=== PATIENT | male | born 1960 | race Caucasian/White ===

== ENCOUNTER → 2016-12-05 | Outpatient (CLI) | payer MEDICAID | END | disposition home or self-care (01) | LOC: LABWHC1 08:50 | PROVIDERS: ATTEND Family Medicine | DX: E29.1 Testicular hypofunction (principal); N40.0 Benign prostatic hyperplasia without lower urinary tract symptoms; E03.9 Hypothyroidism, unspecified; E55.9 Vitamin D deficiency, unspecified | CPT/HCPCS: 36415; 82040; 84270; 84403 ==

== ENCOUNTER → 2017-04-01 | Outpatient (CLI) | payer MEDICAID ==
--- NOTE | 2017-04-01 10:44 | US ---
EXAMINATION TYPE: US thyroid st tissue head/neck DATE OF EXAM: 04/01/2017 9:33 AM COMPARISON: US CLINICAL HISTORY: E04.1 thyroid nodule. Follow up thyroid nodule, history of thyroid biopsy GLAND SIZE: Right Lobe: 5.0 x 1.5 x 2.0 cm Overall Parenchyma: heterogenous Left Lobe: 3.8 x 1.2 x 1.3 cm Overall Parenchyma: heterogeneous Isthmus Thickness: 0.3 cm NODULES RIGHT: # of nodules measured on right: 1 1. 1.2 X 0.9 x 1.1 cm isoechoic solid nodule at the mid pole with well-defined margins. This nodule is wider than tall and shows intranodular vascularity. Prior size: 1.1 x 0.9 x 1.1 cm LEFT: # of nodules measured on left: 0 ISTHMUS: # of nodules measured in the isthmus: 0 Heterogeneous thyroid with reevaluation of right lobe nodule described above, bilateral neck scanned, no evidence of lymphadenopathy. IMPRESSION: 1. Essentially stable right-sided thyroid nodule unchanged from the previous exam given differences i n technique. Thyromegaly persists.
== END | disposition home or self-care (01) ==
LOC: RADUSWWP 09:09
PROVIDERS: ATTEND Family Medicine
DX: E04.1 Nontoxic single thyroid nodule (principal)
CPT/HCPCS: 76536

== ENCOUNTER → 2017-05-02 | Outpatient (CLI) | payer MEDICAID ==
[2017-05-02 11:59] LABS: Basophils # (A) 0.1 k/uL (0-0.2); Basophils % (A) 1 %; CH 30.1; Eosinophils # (A) 0.2 k/uL (0-0.7); Eosinophils % (A) 3 %; HCT 52.6 % (39.0-53.0); HDW 2.32; HGB 16.8 gm/dL (13.0-17.5); Luc # (Auto) 0.16; Luc % (Auto) 2; Lymphocytes # (A) 1.5 k/uL (1.0-4.8); Lymphocytes % (A) 20 %; MCH 30.2 pg (25.0-35.0); MCHC 31.9 g/dL (31.0-37.0); MCV 94.6 fL (80.0-100.0); Mean Platelet Volume 7.4; Monocytes # (A) 0.5 k/uL (0-1.0); Monocytes % (A) 6 %; Neutrophils # (A) 5.2 k/uL (1.3-7.7); Neutrophils % (A) 69 %; RBC 5.57 m/uL (4.30-5.90); RDW 13.6 % (11.5-15.5); WBC 7.5 k/uL (3.8-10.6); WBC (Perox) 7.16
[2017-05-02 12:11] LABS: ALT 49 U/L (21-72); AST 34 U/L (17-59); Anion Gap 11 mmol/L; Blood Urea Nitrogen 26 mg/dL (9-20); Calcium 9.7 mg/dL (8.4-10.2); Carbon Dioxide 26 mmol/L (22-30); Chloride 104 mmol/L (98-107); Glucose 91 mg/dL (74-99); Non-African American GFR(MDRD) >60 (>60 ml/min/1.73 sqM); Sodium 141 mmol/L (137-145)
== END | disposition home or self-care (01) ==
LOC: LABWHC1 10:40
PROVIDERS: ATTEND Family Medicine
DX: E03.9 Hypothyroidism, unspecified (principal); E29.1 Testicular hypofunction
CPT/HCPCS: 36415; 80048; 82040; 82626; 84153; 84270; 84403; 84439; 84443; 84450; 84460; 85025

== ENCOUNTER → 2017-07-30 | Outpatient (CLI) | payer MEDICAID ==
--- NOTE | 2017-07-30 15:29 | US ---
EXAMINATION TYPE: US thyroid st tissue head/neck DATE OF EXAM: 07/30/2017 COMPARISON: NONE CLINICAL HISTORY: E04.1 Nodule. Thyroid nodule GLAND SIZE: Right Lobe: 4.6 x 2.0 x 2.0 cm Overall Parenchyma: heterogenous Left Lobe: 4.3 x 1.5 x 1.6 cm Overall Parenchyma: heterogeneous Isthmus Thickness: 0.4 cm NODULES RIGHT: # of nodules measured on right: 1 1. 1.1 X 0.8 x 1.2 cm isoechoic solid nodule at the mid pole with well-defined margins; . This nod ule is wider than tall and shows intranodular vascularity. Prior size: 1.2 x 0.9 x 1.1 cm LEFT: # of nodules measured on left: 0 ISTHMUS: # of nodules measured in the isthmus: 0 Bilateral neck scanned, no evidence of lymphadenopathy. IMPRESSION: Stable appearing nodule noted right lobe
== END ==
LOC: RADUSWWP 14:58
PROVIDERS: ATTEND Family Medicine
DX: E04.1 Nontoxic single thyroid nodule (principal)
CPT/HCPCS: 76536

== ENCOUNTER → 2018-02-16 | Outpatient (CLI) | payer MEDICAID ==
[2018-02-16 17:31] LABS: Basophils # (A) 0.1 k/uL (0-0.2); Basophils % (A) 1 %; Eosinophils # (A) 0.4 k/uL (0-0.7); Eosinophils % (A) 5 %; Lymphocytes # (A) 1.5 k/uL (1.0-4.8); Lymphocytes % (A) 19 %; MCH 29.1 pg (25.0-35.0); MCHC 31.9 g/dL (31.0-37.0); MCV 91.2 fL (80.0-100.0); Mean Platelet Volume 7.5; Monocytes # (A) 0.6 k/uL (0-1.0); Monocytes % (A) 8 %; Neutrophils # (A) 5.2 k/uL (1.3-7.7); Neutrophils % (A) 65 %; Platelet Count 241 k/uL (150-450); RBC 5.48 m/uL (4.30-5.90); RDW 12.9 % (11.5-15.5)
[2018-02-16 18:15] LABS: Prostate Specific Antigen 2.35 ng/mL (0.00-4.00)
== END | disposition home or self-care (01) ==
LOC: LABWHC1 17:06
PROVIDERS: ATTEND Family Medicine
DX: E03.9 Hypothyroidism, unspecified (principal); E29.1 Testicular hypofunction; R94.6 Abnormal results of thyroid function studies; E34.9 Endocrine disorder, unspecified; Z79.890 Hormone replacement therapy
CPT/HCPCS: 36415; 82627; 84153; 84402; 84403; 84443; 84481; 85025

== ENCOUNTER → 2018-02-16 | Outpatient (CLI) | payer MEDICAID ==
--- NOTE | 2018-02-16 23:28 | US ---
EXAMINATION TYPE: US thyroid st tissue head/neck DATE OF EXAM: 02/16/2018 COMPARISON: 07/30/2017 CLINICAL HISTORY: 57-year-old male E04.1 Nontoxic Single Thyroid Nodule. Follow up thyroid nodule, hi story of biopsy Technique: Multiple sonographic images of the thyroid gland are obtained. FINDINGS: Right Lobe: 4.6 x 1.7 x 2.3 cm Overall Parenchyma: heterogenous Left Lobe: 4.2 x 1.3 x 1.3 cm Overall Parenchyma: heterogeneous Isthmus Thickness: 0.4 cm NODULES RIGHT: # of nodules measured on right: 1 1. 1.0 X 0.8 x 1.1 cm isoechoic solid nodule at the mid pole with well-defined margins. This nodule is wider than tall and shows intranodular vascularity. Prior size: 1.1 x 0.8 x 1.2 cm LEFT: # of nodules measured on left: 0 ISTHMUS: # of nodules measured in the isthmus: 0 Bilateral neck scanned, no evidence of lymphadenopathy. IMPRESSION: Stable solitary 1.1 cm solid nodule in the right midpole. No additional nodules seen.
== END | disposition home or self-care (01) ==
LOC: RADUSWWP 16:48
PROVIDERS: ATTEND Family Medicine
DX: E04.1 Nontoxic single thyroid nodule (principal)
CPT/HCPCS: 76536

== ENCOUNTER → 2018-03-06 | Outpatient (CLI) | payer MEDICAID ==
[2018-03-06 12:33] LABS: T4, Free (Free Thyroxine) 0.78 ng/dL (0.78-2.19)
[2018-03-06 12:47] LABS: Prostate Specific Antigen 1.94 ng/mL (0.00-4.00)
== END | disposition home or self-care (01) ==
LOC: LABWHC1 11:52
PROVIDERS: ATTEND Family Medicine
DX: E03.9 Hypothyroidism, unspecified (principal); N40.0 Benign prostatic hyperplasia without lower urinary tract symptoms
CPT/HCPCS: 36415; 84153; 84439; 84443; 84481

== ENCOUNTER → 2018-03-19 | Outpatient (CLI) | payer MEDICAID | END | disposition home or self-care (01) | LOC: LABWHC1 10:58 | PROVIDERS: ATTEND Family Medicine | DX: E03.9 Hypothyroidism, unspecified (principal) | CPT/HCPCS: 36415; 84481 ==

== ENCOUNTER → 2018-09-02 | Outpatient (CLI) | payer MEDICAID ==
[2018-09-02 11:04] LABS: Appearance,Urine Clear (Clear); Bilirubin,Urine Negative (Negative); Blood,Urine Negative (Negative); Color,Urine Yellow; Glucose,Urine (UA) Negative (Negative); Ketones,Urine Negative (Negative); Leukocyte Esterase,Urine Negative (Negative); Nitrite,Urine Negative (Negative); Protein,Urine Negative (Negative); Urobilinogen,Urine <2.0 mg/dL (<2.0)
[2018-09-02 11:12] LABS: Basophils % (A) 1 %; Eosinophils # (A) 0.2 k/uL (0-0.7); Eosinophils % (A) 2 %; HCT 52.7 % (39.0-53.0); HGB 17.5 gm/dL (13.0-17.5); Lymphocytes # (A) 1.2 k/uL (1.0-4.8); Lymphocytes % (A) 18 %; MCH 30.2 pg (25.0-35.0); MCHC 33.2 g/dL (31.0-37.0); MCV 90.9 fL (80.0-100.0); Mean Platelet Volume 7.1; Monocytes # (A) 0.5 k/uL (0-1.0); Monocytes % (A) 8 %; Neutrophils # (A) 4.7 k/uL (1.3-7.7); Neutrophils % (A) 70 %; Platelet Count 225 k/uL (150-450); RBC 5.79 m/uL (4.30-5.90); RDW 13.4 % (11.5-15.5); WBC 6.7 k/uL (3.8-10.6)
[2018-09-02 11:26] LABS: ALT 33 U/L (21-72); AST 24 U/L (17-59); Albumin 4.1 g/dL (3.5-5.0); Alkaline Phosphatase 46 U/L (38-126); Anion Gap 7 mmol/L; Blood Urea Nitrogen 23 mg/dL (9-20); Calcium 9.5 mg/dL (8.4-10.2); Carbon Dioxide 27 mmol/L (22-30); Chloride 105 mmol/L (98-107); Glucose 84 mg/dL (74-99); Potassium 4.6 mmol/L (3.5-5.1); Sodium 139 mmol/L (137-145); Total Bilirubin 0.9 mg/dL (0.2-1.3); Total Protein 7.2 g/dL (6.3-8.2)
[2018-09-02 11:43] LABS: T4, Free (Free Thyroxine) 0.76 ng/dL (0.78-2.19)
[2018-09-02 11:56] LABS: Prostate Specific Antigen 2.08 ng/mL (0.00-4.00)
[2018-09-02 16:21] LABS: DHEA Sulfate 422.3 ug/dL (34.5-568.9)
[2018-09-02 16:22] LABS: Vitamin D 25 Hydroxy 71.8 ng/mL (30.0-100.0)
[2018-09-02 19:04] LABS: Hemoglobin A1C 5.2 % (4.0-6.0)
== END | disposition home or self-care (01) ==
LOC: LABWHC1 09:44
PROVIDERS: ATTEND Family Medicine
DX: Z00.00 Encounter for general adult medical examination without abnormal findings (principal); E29.1 Testicular hypofunction; E03.9 Hypothyroidism, unspecified; E55.9 Vitamin D deficiency, unspecified; E61.1 Iron deficiency; E04.1 Nontoxic single thyroid nodule; E53.0 Riboflavin deficiency; Z85.46 Personal history of malignant neoplasm of prostate; E34.9 Endocrine disorder, unspecified; Z79.890 Hormone replacement therapy
CPT/HCPCS: 36415; 80053; 81003; 82040; 82306; 82607; 82626; 82627; 82728; 83036; 83090; 84153; 84270; 84403; 84439; 84443; 84481; 85025

== ENCOUNTER 2018-09-10 00:27 | Emergency (ER) | payer MEDICAID ==
[2018-09-10 00:31] VITALS: TEMP 98.3
[2018-09-10] MEDS ORDERED: ASPIRIN 81 MG PO STA (00:38)
[2018-09-10] MEDS ORDERED: SODIUM CHLORIDE 0.9% 1,000 ML IV STA (00:38)
[2018-09-10 01:00] LABS: Basophils % (A) 0 %; Eosinophils # (A) 0.1 k/uL (0-0.7); Eosinophils % (A) 1 %; HCT 52.5 % (39.0-53.0); Lymphocytes # (A) 0.9 k/uL (1.0-4.8); Lymphocytes % (A) 9 %; MCH 30.4 pg (25.0-35.0); MCHC 32.4 g/dL (31.0-37.0); MCV 93.6 fL (80.0-100.0); Mean Platelet Volume 7.1; Monocytes # (A) 0.4 k/uL (0-1.0); Monocytes % (A) 4 %; Neutrophils # (A) 8.5 k/uL (1.3-7.7); Neutrophils % (A) 84 %; Platelet Count 221 k/uL (150-450); RBC 5.61 m/uL (4.30-5.90); RDW 13.3 % (11.5-15.5); WBC 10.2 k/uL (3.8-10.6)
--- NOTE | 2018-09-10 01:05 | XR ---
EXAMINATION TYPE: XR chest 2V DATE OF EXAM: 09/10/2018 COMPARISON: NONE HISTORY: Chest pain TECHNIQUE: Frontal and lateral views of the chest are obtained. FINDINGS: Heart and mediastinum are normal. Lungs are clear. Diaphragm is normal. Bony thorax is int act. Pulmonary vascularity is normal. IMPRESSION: Normal chest.
[2018-09-10 01:12] LABS: ALT 34 U/L (21-72); AST 26 U/L (17-59); Albumin 4.3 g/dL (3.5-5.0); Alkaline Phosphatase 44 U/L (38-126); Anion Gap 8 mmol/L; Blood Urea Nitrogen 22 mg/dL (9-20); Calcium 9.2 mg/dL (8.4-10.2); Carbon Dioxide 26 mmol/L (22-30); Chloride 103 mmol/L (98-107); Glucose 121 mg/dL (74-99); Potassium 4.7 mmol/L (3.5-5.1); Sodium 137 mmol/L (137-145); Total Bilirubin 0.7 mg/dL (0.2-1.3); Total Protein 7.6 g/dL (6.3-8.2)
[2018-09-10 01:15] LABS: Partial Thromboplastin Time 24.4 sec (22.0-30.0); Prothrombin Time 10.1 sec (9.0-12.0)
[2018-09-10 01:28] LABS: Creatine Kinase 149 U/L (55-170)
[2018-09-10 01:41] LABS: Creatine Kinase MB 1.9 ng/mL (0.0-2.4); Troponin I <0.012 ng/mL (0.000-0.034)
--- NOTE | 2018-09-10 01:55 | ED ---
Chest Pain HPI - General Chief Complaint: Chest Pain Stated Complaint: chest pain,vomiting Time Seen by Provider: 09/10/18 00:38 Source: patient Mode of arrival: ambulatory Limitations: no limitations - History of Present Illness Initial Comments: Patient is a 57-year-old male with no significant past medical history who presents the emergency department today for evaluation nausea, vomiting and epigastric and retrosternal discomfort. Patient reports he was in his usual state of health throughout the day. He reports that he ate lunch around 11:30 AM, he states that he ate a pizza from a gas station. Patient reports that throughout the afternoon he started feeling queasy and lost his appetite. He did not eat any dinner. He reports that in the evening he developed nausea and had multiple episodes of nonbloody nonbilious emesis. Patient reports that after about one hour of vomiting he had persistent heaving with no vomitus. He reports that he then began feeling a burning discomfort radiating from his epigastrium through his chest. Patient denies any pressure-like or crushing chest pain. He denies any associated diaphoresis, lightheadedness or shortness of breath. He denies any exertional symptoms. He denies any history of any cardiac pathology. He is no history of hypertension, hyperlipidemia, diabetes, he was never a smoker. - Related Data Previous Rx's Medication Instructions Recorded Ondansetron Odt [Zofran Odt] 4 mg PO Q8HR PRN #8 tab 09/10/18 Allergies Allergy/AdvReac Type Severity Reaction Status Date / Time No Known Allergies Allergy Verified 09/10/18 00:31 Review of Systems ROS Statement: Those systems with pertinent positive or pertinent negative responses have been documented in the HPI. ROS Other: All systems not noted in ROS Statement are negative. EKG Findings - EKG Comments: EKG Findings:: EKG obtained at 12:39 AM, rate is 76, rhythm is sinus, is a leftward axis, normal intervals, DE 184, QRS 104, QTC is 414. There are no acute ST elevations or depressions no evidence of acute ischemia or infarction. Past Medical History Past Medical History: Thyroid Disorder History of Any Multi-Drug Resistant Organisms: None Reported Past Surgical History: Hernia Repair Past Psychological History: No Psychological Hx Reported Smoking Status: Never smoker Past Alcohol Use History: None Reported Past Drug Use History: None Reported General Exam - General Exam Comments Initial Comments: GENERAL: Patient is well-developed and well-nourished. Patient is nontoxic and well- hydrated and is in no distress. HENT: Normocephalic, Atraumatic. Neck is soft and supple. No significant lymphadenopathy is noted. Oropharynx is clear. Moist mucous membranes. Neck has full range of motion without eliciting any pain. EYES: The sclera were anicteric and conjunctiva were pink and moist. Extraocular movements were intact and pupils were equal round and reactive to light. Eyelids were unremarkable. PULMONARY: Unlabored respirations. Good breath sounds bilaterally. No audible rales rhonchi or wheezing was noted. CARDIOVASCULAR: There is a regular rate and rhythm without any murmurs gallops or rubs. ABDOMEN: Soft and nontender with normal bowel sounds. SKIN: Skin is clear with no lesions or rashes and otherwise unremarkable. NEUROLOGIC: Patient is alert and oriented x3. Cranial nerves II through XII are grossly intact. Motor and sensory are also intact. Normal speech, volume and content. Symmetrical smile. MUSCULOSKELETAL: Normal extremities with adequate strength and full range of motion. No lower extremity swelling or edema. No calf tenderness. LYMPHATICS: No significant lymphadenopathy is noted PSYCHIATRIC: Normal psychiatric evaluation. Limitations: no limitations Limitations: no limitations Course Vital Signs 09/10/18 09/10/18 09/10/18 00:29 01:00 01:20 Temperature 98.3 F Pulse Rate 71 85 89 Respiratory 18 16 12 Rate Blood Pressure 158/82 156/82 156/82 O2 Sat by Pulse 97 95 96 Oximetry 09/10/18 09/10/18 09/10/18 01:30 01:40 01:50 Temperature Pulse Rate 86 84 84 Respiratory 21 18 20 Rate Blood Pressure 156/82 159/88 163/80 O2 Sat by Pulse 96 96 96 Oximetry 09/10/18 02:00 Temperature Pulse Rate 86 Respiratory 20 Rate Blood Pressure 163/80 O2 Sat by Pulse 95 Oximetry Chest Pain [facility] Patient was seen and evaluated, history was obtained from the patient and his at bedside. Patient had some suspicious food intake at lunch, he ate a pizza from a gas station and subsequently developed nausea. This evening he had vomiting and then developed some epigastric and chest discomfort. There is no blood in the vomitus. Patient had no complaints of exertional chest pain or any history of cardiac disease. He has minimal risk factors only being age and male gender. Heart Score is 0 Cardiac workup was ordered EKG with no acute findings Chest x-ray no acute findings Labs and no significant abnormalities. Considering that the patient's symptoms began 28 and 9 PM and have been persistent I do not feel there is need for repeat troponin. A very low suspicion for any cardiac etiology of his discomfort and suspect is likely related to GI discomfort due to persistent vomiting. Patient reports feeling better after Zofran and IV fluids. Discharge instructions were discussed, return parameters were discussed. All questions pertaining care were answered the best my ability and patient was discharged home in stable condition. Disposition Clinical Impression: Atypical chest pain, Nausea and vomiting Disposition: HOME SELF-CARE Condition: Good Instructions: Gastroenteritis (ED), Acute Nausea and Vomiting (ED) Additional Instructions: Contact her primary care physician to let him know the ER in the emergency department what symptoms to her experiencing. Return to the emergency department if he develop any worsening chest pain or shortness of breath. Prescriptions: Ondansetron Odt [Zofran Odt] 4 mg PO Q8HR PRN #8 tab PRN Reason: Nausea Is patient prescribed a controlled substance at d/c from ED?: No Referrals: Jacinto Fletcher DO [Primary Care Provider] - 1-2 days
[2018-09-10 02:10] VITALS: BP 163/80; PULSE 86; RESP 20
== END 2018-09-10 02:19 | disposition home or self-care (01) ==
LOC: EC 00:27
DX: R07.89 Other chest pain (principal); R11.2 Nausea with vomiting, unspecified; R10.13 Epigastric pain
CPT/HCPCS: 36415; 71046; 80053; 82550; 82553; 83735; 83880; 84484; 85025; 85610; 85730; 93005; 96360; 99285

== ENCOUNTER → 2018-11-19 | Outpatient (CLI) | payer MEDICAID ==
--- NOTE | 2018-11-19 10:07 | US ---
EXAMINATION TYPE: US thyroid st tissue head/neck DATE OF EXAM: 11/19/2018 COMPARISON: 02/16/2018 CLINICAL HISTORY: E04.1 nontoxic thyroid nodule. Follow up thyroid nodule, history of FNA, on thyroid meds GLAND SIZE: Right Lobe: 4.7 x 1.7 x 2.2 cm Overall Parenchyma: heterogenous Left Lobe: 4.2 x 1.2 x 1.3 cm Overall Parenchyma: heterogeneous Isthmus Thickness: 0.4 cm NODULES RIGHT: # of nodules measured on right: 1 1. 1.2 X 1.1 x 1.1 cm isoechoic solid nodule at the mid pole with well-defined margins. This nodule is wider than tall and shows intranodular vascularity. Prior size: 1.0 x 0.8 x 1.1 cm LEFT: # of nodules measured on left: 0 ISTHMUS: # of nodules measured in the isthmus: 0 Bilateral neck scanned, no evidence of lymphadenopathy. IMPRESSION: Slight increased size of a right lobe thyroid nodule.
== END | disposition home or self-care (01) ==
LOC: RADUSWWP 06:58
PROVIDERS: ATTEND Family Medicine
DX: E04.1 Nontoxic single thyroid nodule (principal)
CPT/HCPCS: 76536